=== PATIENT | male | born 1975 | race African-American/Black ===

== ENCOUNTER 2018-09-16 19:28 | Emergency (ER) | payer OTHER ==
[~2018-09-16] VITALS: Ht 170.2 cm; Wt 72.6 kg
--- NOTE | 2018-09-16 19:34 | ED.ADGEN ---
Adult General Chief Complaint Chief Complaint ".. I ve got bright red blood..when I wipe..it been off and on.. and its seem more to day.. 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 Blood is bright red. Shows a picture with very small amount of blood on tissue. Pt. has had earlier some hard stools.. No history of coagulopathy. No history of rectal sex. No history of prior episodes of hemorrhoids. No history of family history with him or family members of colitis or Crohn's. No history immunosuppression. No history of underlying health issues. History of travel. Review of Systems Review of Systems Constitutional: Denies fever or chills [] Eyes: Denies change in visual acuity, redness, or eye pain [] HENT: Denies nasal congestion or sore throat [] Respiratory: Denies cough or shortness of breath [] Cardiovascular: No additional information not addressed in HPI [] GI: Denies abdominal pain, nausea, vomiting, bloody stools or diarrhea []. Complains of blood on his toilet paper after wiping : Denies dysuria or hematuria [] Musculoskeletal: Denies back pain or joint pain [] Integument: Denies rash or skin lesions [] Neurologic: Denies headache, focal weakness or sensory changes [] Endocrine: Denies polyuria or polydipsia [] All other systems were reviewed and found to be within normal limits, except as documented in this note. Family History Family History Noncontributory Current Medications Current Medications See nursing for home meds Allergies Allergies Allergies Coded Allergies Type Severity Reaction Last Updated Verified No Known Drug Allergies 09/16/18 No Physical Exam Physical Exam Constitutional: Well developed, well nourished, no acute distress, non-toxic a ppearance. [] HENT: Normocephalic, atraumatic, bilateral external ears normal, oropharynx moist, no oral exudates, nose normal. [] Eyes: PERRLA, EOMI, conjunctiva normal, no discharge. [] Neck: Normal range of motion, no tenderness, supple, no stridor. [] Cardiovascular:Heart rate regular rhythm, no murmur [] Lungs & Thorax: Bilateral breath sounds clear to auscultation [] Abdomen: Bowel sounds normal, soft, no tenderness, no masses, no pulsatile masses. [] Currently no rectal bleeding. Very small hemorrhoid tag. No fissure. Skin: Warm, dry, no erythema, no rash. [] Back: No tenderness, no CVA tenderness. [] Extremities: No tenderness, no cyanosis, no clubbing, ROM intact, no edema. [] Neurologic: Alert and oriented X 3, normal motor function, normal sensory function, no focal deficits noted. [] Psychologic: Affect anxious, judgement normal, mood normal. [] Current Patient Data Vital Signs Vital Signs Date Time Temp Pulse Resp B/P (MAP) Pulse Ox O2 Delivery O2 Flow Rate FiO2 09/16/18 19:47 97.7 74 97 Room Air EKG EKG [] Radiology/Procedures Radiology/Procedures [] Course & Med Decision Making Course & Med Decision Making Pertinent Labs and Imaging studies reviewed. (See chart for details) to keep stool soft. Patient avoid constipation. Patient follow-up primary care. Patient follow-up with GI for colonoscopy. Patient return if active bleeding. Patient return of any concerns. [] Final Impression Final Impression 1. Out Let Bleeding[]-GI bleeding Dragon Disclaimer Dragon Disclaimer This electronic medical record was generated, in whole or in part, using a voice recognition dictation system. Discharge Summary Visit Information Final Diagnosis Problems Medical Problems: (1) Rectal bleeding Status: Acute Brief Hospital Course Allergies Allergies Coded Allergies Type Severity Reaction Last Updated Verified No Known Drug Allergies 09/16/18 No Vital Signs Vital Signs Date Time Temp Pulse Resp B/P (MAP) Pulse Ox O2 Delivery O2 Flow Rate FiO2 09/16/18 19:47 97.7 74 97 Room Air Brief Hospital Course Mr. Folres is a 43 old male who presented with out let GI bleeding after stooling. Discharge Information Condition at Discharge: Improved, Stable Disposition/Orders: D/C to Home Dragon Disclaimer This chart was dictated in whole or in part using Voice Recognition software in a busy, high-work load, and often noisy Emergency Department environment. It may contain unintended and wholly unrecognized errors or omissions. WOO RYAN MD September 16, 2018 19:34
[2018-09-16 19:47] VITALS: BP 154/98
== END 2018-09-16 20:10 | disposition home or self-care (01) ==
LOC: ER 19:28
DX: K92.2 Gastrointestinal hemorrhage, unspecified (principal)
CPT/HCPCS: 99281

== ENCOUNTER 2018-10-08 20:58 | Emergency (ER) | payer OTHER ==
[~2018-10-08] VITALS: Ht 170.2 cm; Wt 77.1 kg
[2018-10-08 21:15] VITALS: BP 151/80
--- NOTE | 2018-10-08 21:47 | PHYS DOC ---
Past History Past Medical History: No Pertinent History Past Surgical History: No Surgical History Alcohol Use: None Drug Use: None Adult General Chief Complaint Chief Complaint: SKIN RASH/ABSCESS [facility] HPI 43-year-old male presents with rash on his bilateral upper extremities. Patient states that this started to show up about 4 days ago. It started as multiple small red dots mostly on the anterior side of both arms. It seems to stop at about the T-shirt line. The patient started using hydrocortisone yesterday and it helps with the itching and they seem to be improving quickly. The patient was diagnosed at another facility as possible scabies. He presents here because the [facility] where he is living is concerned as to whether or not they need to do decontamination. The patient is wants to make sure this is or is not scabies. He does not have any lesions anywhere else on his body. The lesions are improving. Review of Systems Review of Systems Constitutional: Denies fever or chills [] Eyes: Denies change in visual acuity, redness, or eye pain [] HENT: Denies nasal congestion or sore throat [] Respiratory: Denies cough or shortness of breath [] Cardiovascular: No additional information not addressed in HPI [] GI: Denies abdominal pain, nausea, vomiting, bloody stools or diarrhea [] : Denies dysuria or hematuria [] Musculoskeletal: Denies back pain or joint pain [] Integument: Mildly erythematous papules on the bilateral upper extremities, heavier in the flexural surfaces. This appears consistent with contact dermatitis[] Neurologic: Denies headache, focal weakness or sensory changes [] Endocrine: Denies polyuria or polydipsia [] All other systems were reviewed and found to be within normal limits, except as documented in this note. Allergies Allergies Allergies Coded Allergies Type Severity Reaction Last Updated Verified No Known Drug Allergies 10/08/18 No Physical Exam Physical Exam Constitutional: Well developed, well nourished, no acute distress, non-toxic appearance. [] HENT: Normocephalic, atraumatic, bilateral external ears normal, oropharynx moist, no oral exudates, nose normal. [] Eyes: PERRLA, EOMI, conjunctiva normal, no discharge. [] Neck: Normal range of motion, no tenderness, supple, no stridor. [] Cardiovascular:Heart rate regular rhythm, no murmur [] Lungs & Thorax: Bilateral breath sounds clear to auscultation [] Abdomen: Bowel sounds normal, soft, no tenderness, no masses, no pulsatile masses. [] Skin: Warm, dry, no erythema, no rash. [] Back: No tenderness, no CVA tenderness. [] Extremities: No tenderness, no cyanosis, no clubbing, ROM intact, no edema. [] Neurologic: Alert and oriented X 3, normal motor function, normal sensory function, no focal deficits noted. [] Psychologic: Affect normal, judgement normal, mood normal. [] Current Patient Data Vital Signs Vital Signs Date Time Temp Pulse Resp B/P (MAP) Pulse Ox O2 Delivery O2 Flow Rate FiO2 10/08/18 21:15 98.1 77 20 151/80 (103) 96 Room Air EKG EKG [] Radiology/Procedures Radiology/Procedures [] Course & Med Decision Making Course & Med Decision Making Pertinent Labs and Imaging studies reviewed. (See chart for details) The patient's rash is not consistent with scabies. He is improving with topical steroid and not spreading. It looks more like contact dermatitis. I believe he is just come in contact with something that he is allergic to and got rubbed on both arms. He is stable for discharge at this time. [] Dragon Disclaimer Dragon Disclaimer This electronic medical record was generated, in whole or in part, using a voice recognition dictation system. Departure Departure: Impression: Primary Impression: Contact dermatitis Disposition: HOME, SELF-CARE Condition: STABLE Referrals: PCP,NO (PCP) Patient Instructions: Contact Dermatitis, [id number] Additional Instructions: The patient's rash is not consistent with scabies. I believe this is an allergic reaction, contact dermatitis. It is not scabies. Problem Qualifiers Primary Impression: Contact dermatitis Contact dermatitis type: irritant Contact dermatitis trigger: unspecified trigger Qualified Codes: L24.9 - Irritant contact dermatitis, unspecified cause FABIENNE WILSON DO October 08, 2018 21:47
== END 2018-10-08 22:04 | disposition home or self-care (01) ==
LOC: ER 20:58
DX: L24.9 Irritant contact dermatitis, unspecified cause (principal)
CPT/HCPCS: 99281